=== PATIENT | female | born 1990 | race Caucasian/White ===

== ENCOUNTER 2020-06-06 10:14 | Outpatient (CLI) | payer OTHER, SELFPAY ==
[2020-06-06 12:18] LABS: Hematocrit 35.2 % (37.0-47.0); Hemoglobin 11.9 g/dL (12.0-15.0)
[2020-06-06 12:31] LABS: Glucose 1 Hour PP 50gm Dose 164 mg/dL
[2020-06-06 13:38] LABS: HIV 1/2 Ab P24 Ag Result Negative (Negative)
[2020-06-06 14:00] LABS: Rubella IgG Antibody 4.8 IU/ML
[2020-06-06] MEDS: RHO(D) IMMUNE GLOBULIN 300 MCG SYRINGE IM (17:13)
== END 2020-06-06 10:15 | disposition home or self-care (01) ==
LOC: ANHLAB 10:24
PROVIDERS: Visit Provider Obstetrics & Gynecology
DX: Z36.89 Encounter for other specified antenatal screening (principal); Z34.02 Encounter for supervision of normal first pregnancy, second trimester; Z3A.00 Weeks of gestation of pregnancy not specified
CPT/HCPCS: 36415; 82947; 85014; 85018; 85461; 86703; 86762; 90384; 96372; G0432; J2790

== ENCOUNTER 2020-06-14 07:29 | Outpatient (CLI) | payer OTHER, SELFPAY ==
[2020-06-14 08:08] LABS: Glucose Fasting Gestational 82 mg/dL (>/=95)
[2020-06-14 09:45] LABS: Glucose 1 Hour Gest 91 mg/dL (>/=180)
[2020-06-14 10:33] LABS: Glucose 2 Hour Gest 94 mg/dL (>/= 155)
[2020-06-14 11:35] LABS: Glucose 3 Hour Gest 48 mg/dL (>/=140)
== END 2020-06-14 07:30 | disposition home or self-care (01) ==
LOC: ANHLAB 07:32
PROVIDERS: Visit Provider Obstetrics & Gynecology
DX: R73.09 Other abnormal glucose (principal)
CPT/HCPCS: 36415; 82951; 82952

== ENCOUNTER 2020-08-27 11:23 | Inpatient (IN) | payer OTHER, SELFPAY ==
[2020-08-27] VITALS (19 sets, daily range): BP systolic 91–136; BP diastolic 63–116; PULSE 68–152; RESP 13; TEMP 36.2–37.4; O2SAT 100; BMI 35.4
[2020-08-27 11:53] LABS: Basophils Percent Auto 0.2 % (0.2-1.2); Eosinophils Percent Auto 0.4 % (0-4.4); Hematocrit 39.6 % (37.0-47.0); Hemoglobin 13.9 g/dL (12.0-15.0); Immature Granulocyte Absolute 0.03 K/mm3 (0.00-0.031); Immature Granulocyte Percent A 0.4 % (0-0.5); Lymphocytes Absolute Auto 1.66 K/mm3 (0.9-3.2); Lymphocytes Percent Auto 19.8 % (18.3-44.2); Mean Corpuscular HGB Conc 35.1 g/dl (32-36); Mean Corpuscular Hemoglobin 32.9 pg (26-34); Mean Corpuscular Volume 93.8 fl (80-100); Mean Platelet Volume 12.4 fl (7.4-10.4); Monocytes Absolute Auto 0.4 K/mm3 (0.1-0.6); Monocytes Percent Auto 5.1 % (2.6-8.5); Neutrophils Absolute Auto 6.2 K/mm3 (1.3-6.7); Neutrophils Percent Auto 74.1 % (45.5-73.1); Platelet Count Result 170 k/mm3 (150-375); Red Blood Count 4.22 M/mm3 (4.2-5.4); Red Cell Distribution Width 12.6 % (11.5-14.5); White Blood Count 8.4 K/mm3 (4.5-10.0)
--- NOTE | 2020-08-27 11:53 | LDADM ---
This patient, Elena Biswas, was admitted to Labor/Delivery/Recovery 103 on 08/27/20 at 11:23. Plans for labor, pain management and were discussed with patient. Patient/family oriented to hospital policies and general routines including ID bracelet, bed and alarms, visiting hours, pain management, procedures, bathroom and other care routines, personal items, smoking policy, room service/diet and guest tray routines, infant security routines, call light, and visiting hours. Patient/Family are encouraged to report perceived risks to care and to ask questions if they do not understand what they are told or what they should do. See OBIX for further documentation.
[2020-08-27] MEDS: LACTATED RINGERS 1,000 ML 125 ML IV CONT (11:55)
[2020-08-27] MEDS: AMPICILLIN 2 GM/NS 100 ML 2 GM/100 ML BAG IVPB (11:55)
[2020-08-27 12:45] LABS: HIV 1/2 Ab P24 Ag Result Negative (Negative)
[2020-08-27] MEDS: AMPICILLIN 1 GM/NS 50 ML 1 GM/50 ML BAG IVPB (15:53)
--- NOTE | 2020-08-27 16:26 | PM.IMHP ---
H&P: HPI History of Present Illness Date/Time: 08/27/20 16:26 Chief complaint: Induction of Labor Narrative: Elena Biswas is a 29 yo @ 39.5wks who presented to clinic and was found to be 5cm dilated while GBS +. She reports contractions/cramping on and off. Good movement. Had bloody show on . Her is complicated by: - Rh negative s/p rhogam @ 28wks - Abnormal glucola, normal 3hr OGTT - GBS positive - Advanced cervical dilation @ 5cm Review of Systems Constitutional: Constitutional: Denies body ache(s), Denies chills and Denies fever(s) Eyes: Eyes: Denies blurry vision and Denies change in vision Cardiovascular: Cardiovascular: Denies chest pain and Denies lightheadedness Respiratory: Respiratory: Denies cough and Denies dyspnea Gastrointestinal: Gastrointestinal: Denies abdominal pain Genitourinary: Genitourinary: Denies abnormal vaginal bleeding and Denies vaginal discharge Musculoskeletal: Musculoskeletal: Reports back pain Neurologic: Denies headache(s) Psychiatric: Psychiatric: Denies anxiety and Denies depression [facility] Family History Family History Grandparent Diabetes mellitus Cancer Grandparent Heart disease Social History Social History Smoking status: Never smoker Substance use: never Spiritual care concerns: No Meds Home Medications and Allergies Home Medications Medication Instructions Recorded Confirmed Type PNV cmb#95-ferrous fumarate-FA 1 tablet PO DAILY 07/30/20 07/30/20 History [] aspirin [Aspirin Low Dose] 81 mg PO DAILY 07/30/20 07/30/20 History Allergies Allergy/AdvReac Type Severity Reaction Status Date / Time No Known Allergies Allergy Verified 07/30/20 15:30 Vital Signs Vital Signs - 24 hr 08/27/20 12:17 08/27/20 15:54 Pulse Rate 68 86 Blood Pressure 120/88 127/83 Exam Const: General: cooperative, comfortable and no acute distress Orientation/consciousness: patient oriented x3 Resp: Effort & Inspection: normal respiratory effort Cardio: Rate: regular rate : Other: FHT's: 120's/ mod rex/ + accels/ no decels - cat 1 TOCO: Cervix: 5/70/-2 Membranes: AROM, clear 1630 Position: cephalic Skin: General skin exam: normal color Extrem: General: normal to inspection Psych: Appearance: grossly normal Affect: normal affect Attitude: cooperative H&P: Results Labs Labs: Short CBC 08/27/20 Range/Units 11:45 WBC 8.4 (4.5-10.0) K/mm3 Hgb 13.9 (12.0-15.0) g/dL Hct 39.6 (37.0-47.0) % Plt Count 170 (150-375) k/mm3 Assessment and Plan Assessment and plan (1) : Qualifiers: Weeks of gestation: 39 weeks Qualified Code(s): Z3A.39 - 39 weeks gestation of Code(s): Z34.90 - Encounter for supervision of normal , unspecified, unspecified trimester Status: Acute (2) GBS (group B Streptococcus carrier), +RV culture, currently : Code(s): O99.820 - Streptococcus B carrier state complicating Status: Acute Additional Plan - Advanced cervical dilation at 5cm w/ +GBS; encouraged for induction to prevent infection - Pt agreed to ROM after treatment with antibiotics; s/p 4 hours of GBS ppx - AROM clear 1630 - Pt would like to avoid pitocin and epidural, unless completely necessary - continuous monitoring; currently category 1
--- NOTE | 2020-08-27 16:40 | WPDHPUPDATE1 ---
History and Physical Update Update Date/Time: 08/27/20 16:40 History and Physical has been reviewed, including an updated exam of the patient. There are NO changes in the patient's condition. Risks, benefits, and alternatives have been discussed and questions answered. Patient agrees to proceed with procedure.
[2020-08-27] MEDS: OXYTOCIN 30 UNITS/NS 500 ML 30 UNITS/500 ML BAG 999 UNITS IV CONT (19:08)
[2020-08-27] MEDS: OXYTOCIN 30 UNITS/NS 500 ML 30 UNITS/500 ML BAG 125 UNITS IV CONT (19:41)
--- NOTE | 2020-08-27 19:48 | P.PCNOB_ITS ---
OB - Delivery Note Procedure Delivery date: 08/27/20 events: Rh Incompatibility and Labor Augmentation Delivery augmentation: rupture of membranes Delivery monitor: external FHT and external uterine Route of delivery: Laceration Description: Perineal - 2nd Degree Delivery repair: vicryl Estimated blood loss (mL): 450 Anesthesia type: Local Disposition: floor Narrative: The patient progressed to complete dilation with strong urge to push. She desired to push and deliver on all fours. She delivered the head over intact perineum. The shoulders and body delivered without complications. The infant had spontaneous cry. The umbilical cord was then clamped, and cut by the father. Mom and baby were then bonding skin the skin. A segment of the cord was collected for cord gases and the remaining cord blood was collected for typing. The patient was repositioned to her back and with gentle traction on the umbilical cord the placenta delivered without complications. Pitocin augmentation was then started. Mild bleeding was noted and bimanual massage was performed, with better tone noted. The vagina and perineum were examined and a second-degree laceration was noted. Using lidocaine without epinephrine the patient was appropriately anesthetized. The laceration was repaired in the normal fashion using 2 0 Vicryl and good hemostasis was noted. Fundal massage was once again performed and minimal bleeding was noted and she was palpated firm. Mom and baby were left bonding in the birthing suite in a stable condition. [place] Baby Date of : 08/27/20 Time of : 19:00 Weeks of gestation at delivery: 39 gender: Male Weight (pounds): 7 Weight (ounces): 15 presentation: vertex (occiput anterior) Placenta delivery description: Expressed cord vessel description: 3 Vessels score one minute: 8 score five minutes: 9
[2020-08-27] MEDS: IBUPROFEN 600 MG TABLET PO (20:40)
[2020-08-27] MEDS: miSOPROStol 200 MCG TABLET 800 MCG RECTAL (20:52)
[2020-08-27] MEDS: WITCH HAZEL 40 PADS 1 PAD TOPICAL (21:51)
[2020-08-28] MEDS: IBUPROFEN 600 MG TABLET PO ×4 (03:26→20:37)
[2020-08-28 05:09] LABS: Hematocrit 31.1 % (37.0-47.0); Hemoglobin 10.3 g/dL (12.0-15.0)
[2020-08-28 07:50] VITALS: BP 128/88; PULSE 76; RESP 18; TEMP 36.7; O2SAT 98
[2020-08-28] MEDS: MULTIVIT/MIN/PREN/FOL AC/IRON TABLET 1 TAB PO (08:34)
--- NOTE | 2020-08-28 13:21 | WPDANLDPN2 ---
Anes-Prog Note L&D Date/Time: 08/28/20 13:21 Comfortable throughout: labor Neuraxial method: epidural Epidural/Spinal procedure site: clean & non-tender Neuro status: Neuro function grossly intact. Cardiovascular status: normal Respiratory status: normal Airway patency: baseline Mental status: baseline Post-Op hydration status: normal Vital Signs: Last Vital Signs Temp 98.1 F 08/28/20 07:50 Pulse 76 08/28/20 07:50 Resp 18 08/28/20 07:50 BP 128/88 08/28/20 07:50 Pulse Ox 98 08/28/20 07:50 Pain score (VAS): 0/10 I/O: Intake & Output 08/27/20 08/28/20 08/28/20 23:59 07:59 15:59 Intake Total 950 Output Total 800 Balance 150 Patient feedback: Patient satisfied with anesthetic care.
[2020-08-28 14:20] LABS: Rapid Plasma Reagin Non-Reactive (NonReactive)
--- NOTE | 2020-08-28 17:08 | PM.OBPNVD ---
OB - PN: Subj Subjective Date/time seen: 08/28/20 17:08 PPD#1 Kunal is doing great today. She reports her pain is well controlled, took ibuprofen to help with the cramping after breast feeding. She is tolerating regular diet. 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 She is voiding and passing gas. She is ambulating and denying symptoms of anemia. She is breast feeding. She would like her son to get circumcised. She would like to go home tomorrow morning. No STONE, vision changes, SOB, CP, fever, chills, N/V, dizziness or palpitations. OB - PN: Obj Data Labs CBC & Chem 7: 08/28/20 03:48 Labs: Laboratory Results - last 24 hr 08/27/20 08/28/20 11:45 03:48 Hgb 10.3 L D Hct 31.1 L RPR Non-reactive OB - PN A/P Assessment and Plan (1) Normal vaginal delivery: Code(s): O80 - Encounter for full-term uncomplicated delivery Status: Acute Plan day: 1 Plan: routine care and discharge home (tomorrow) Comments: - discharge instructions discussed in details - Return precautions: N/v/abd pain, fever, bleeding, HTN - F/u in 4 wks; call office if any issues arise Time Spent With Patient Time: Total time spent is greater than 50% in coordination of care (as documented) at patient's floor/unit and/or counseling patient: Review of Systems Review of Systems: All systems reviewed & are unremarkable except as noted in HPI and below (HPI) Exam Const: General: cooperative, healthy appearing, comfortable and no acute distress Resp: Effort & Inspection: normal respiratory effort Auscultation: clear to auscultation bilaterally Cardio: Rate: regular rate GI: Inspection: normal to inspection GI Palp: No abdominal tenderness and Yes Soft to palpation Auscultation: normal bowel sounds : Other: fundus firm below umbilicus Skin: General skin exam: normal color Neuro: General: patient oriented x3 Extrem: General: normal to inspection Psych: Appearance: grossly normal Affect: normal affect
[2020-08-28 20:40] VITALS: BP 115/81; PULSE 68; RESP 12; TEMP 36.8; O2SAT 99
[2020-08-29] MEDS: IBUPROFEN 600 MG TABLET PO (06:37)
[2020-08-29 08:05] VITALS: BP 118/81; PULSE 62; RESP 18; TEMP 36.3; O2SAT 98
[2020-08-29] MEDS: MULTIVIT/MIN/PREN/FOL AC/IRON TABLET 1 TAB PO (08:28)
[2020-08-29] MEDS: MEASLES,MUMPS,RUBELLA VACCINE 0.5 ML VIAL SUB-Q (08:28)
--- NOTE | 2020-08-29 08:30 | PC.NURSE ---
Patient viewed the discharge video Mother & Baby Care, The First Two Weeks . Patient was given the opportunity and encouraged to ask questions. Patient verbalized understanding of information shared and has been given the mother/baby guide for home reference.
--- NOTE | 2020-08-29 10:50 | PC.NURSE ---
Consulted with patient, mother reports this to be third child to breastfeed, having issues with low milk production with first two children. Mother states she has chosen to supplement after all feedings due to previous history of low supply. Mother has marked breast asymmetry and had no breast changes during . Reviewed feeding cues, frequencies, duration of feedings, feeding elimination flow sheet, and signs of adequate intake. Demonstrated stimulation techniques to wake for feeding. Assisted with to breast. Reviewed positioning/alignment in cross cradle, holding breast in U hold and guided asymmetrical latch on. discussed rational for each. Infant was able to latch correctly with first attempt. nursed eagerly, with steady draws and occasional swallowing noted. Reviewed signs of a correct latch, effective nursing and suck swallow ratio. Infant was able to maintain latch without discomfort to mother. Nipple care reviewed. Suggested to stimulate while feeding to keep awake and nursing effectively for increased intake and to assist with maintaining deep latch. Instructed mother to call out for RN assistance if she is unable to latch for feeding or she has discomfort with nursing. Instructed feeding should be initiated three hours from start of last feeding or if feeding cues are noted before. Mother voiced understanding of information shared. Mother is able to independently latch with appropriate positioning/alignment. She denies any nipple discomfort, is feeding as required and waking to feed if needed. Infant has had at lest 8 effective feedings in the past 24 hours, and is currently meeting outcomes for weight, output, jaundice and feeding frequencies. Mother states she feels confident to continue effective followed with supplementation at home. Reviewed transition to breast milk, signs of adequate intake, and engorgement/relief. Instructed to call ICP if intake/output less than required. Reviewed regular medications mother is taking. Information provided per Brianna. Reviewed community resources on the [employer] website and in the Mom/Baby guide. Information on outpatient services provided. Mother has no further questions at this time.
[2020-08-30 10:13] VITALS: BP 111/82; PULSE 87; RESP 16; TEMP 37; O2SAT 99
--- NOTE | 2020-09-02 09:54 | PM.OBDSVD ---
DS: Admitting Diagnosis Admitting Diagnosis Admitting Diagnosis: Induction of Labor DS: Discharge Diagnosis Discharge Diagnosis (1) Normal vaginal delivery: Code(s): O80 - Encounter for full-term uncomplicated delivery Status: Acute OB - DS: Summary OB Procedures : None OB Procedures Intrapartum: Spontaneous Vag Delivery OB Procedures: : RHo (D) lg Peripartum Data Delivery Method: Natural Vaginal Laceration description: Periurethral - 2nd Degree complications: none 1: Gender: Male Disposition of : home Time Spent with Patient Time attestation: Total time spent providing and/or coordinating discharge services: Exam Const: General: cooperative, healthy appearing, comfortable and no acute distress Orientation/consciousness: patient oriented x3 Resp: Effort & Inspection: normal respiratory effort Auscultation: clear to auscultation bilaterally Cardio: Rate: regular rate GI: GI Palp: No abdominal tenderness and Yes Soft to palpation Auscultation: normal bowel sounds : Other: fundus firm below umbilicus Skin: General skin exam: normal color Neuro: General: patient oriented x3 Extrem: General: normal to inspection Psych: Appearance: grossly normal Affect: normal affect Attitude: cooperative DS: Data Data Completed and Pending Completed studies during hospitalization: Pending at discharge 08/27/20 19:00 Surgical [PTH] Routine Discharge Plan Discharge Attending physician on discharge: Ava Cortez Discharging Clinician: Ava Cortez Anticipated Discharge Date/Time: 08/29/20 10:00 Patient Disposition: Home, Self-Care Activity: pelvic rest Diet: regular Discharge Instructions: Education: Mom and Baby Guide and Preeclampsia Handout Given to: Mother Follow-Up: Call your delivering provider's office for an appointment to be seen in: 4 Weeks Mom and baby should come to the [facility] for the follow-up appointment. Appointment Date/Time: August 30, 2020 at 10:00 am What to expect at your follow-up visit: Physical Assessment Call [phone] if you are unable to keep your appointment time. BREAST CARE: * Wear a snug supportive bra. * For engorgement discomfort: Breast Feeding: * Apply warm moist washcloths * Express milk as needed to relieve engorgement * Wear loose clothing * For sore nipples: * Identify correct latch-on * Apply warm moist washcloths before and after nursing * Air dry nipples after nursing * May apply Lansinoh cream to nipples EPISIOTOMY/PERINEAL CARE: * Until bleeding stops, use your eduardo bottle after urinating * Change your pad frequently throughout the day * You may take sitz baths several times a day (fill your bathtub with warm water and soak for 20 minutes.) Do NOT bathe in the water * No tub baths until seen by your physician - You may shower ACTIVITY: * Rest as much as possible. * Do not exercise or lift anything heavier than your baby (such as laundry or other children.) * Avoid stairs or driving as much as possible. * Do not put anything into the vagina. No douching, tampons, or sexual activity until seen by physician. NOTIFY PHYSICIAN IF YOU HAVE ANY QUESTIONS OR IF ANY OF THE FOLLOWING SYMPTOMS OCCUR: * If your episiotomy or perineum becomes red, swollen, or more painful than what you have experienced in the hospital. * If your vaginal bleeding becomes foul smelling. * If your vaginal bleeding becomes more heavy than a period or if your bleeding changes from pink to bright red. However, you may pass an occasional walnut-sized clot once or twice for the first week . * If you experience a sharp, shooting pain in you calves. * If you discover a hard, reddened area on your breast or if you experience flu-like symptoms. DIET: * Eat regular,
== END 2020-08-29 11:50 | disposition home or self-care (01) | DRG 806 ==
LOC: ANHLDR 11:26 → ANHOB2 22:57
PROVIDERS: Admitting Provider Obstetrics & Gynecology; Visit Provider Obstetrics & Gynecology
DX: O99.824 Streptococcus B carrier state complicating childbirth (principal); O36.0930 Maternal care for other rhesus isoimmunization, third trimester, not applicable or unspecified; Z37.0 Single live birth; Z3A.39 39 weeks gestation of pregnancy; O70.1 Second degree perineal laceration during delivery; O62.3 Precipitate labor
CPT/HCPCS: 36415; 85014; 85018; 85025; 86592; 86703; 86762; 86850; 86900; 86901; 88307; 90710; A9270; G0432; J0290; J2590; J7120